=== PATIENT | male | born 1960 | race African-American/Black ===

== ENCOUNTER 2021-04-10 21:43 | Emergency (ER) | payer OTHER ==
[~2021-04-10] VITALS: Ht 180.3 cm; Wt 86.4 kg
[2021-04-10] MEDS ORDERED: PHENYLEPHRINE HCL 0.5% 15 ML NASAL SPRAY NASAL ONE (22:00)
[2021-04-10] MEDS ORDERED: OXYMETAZOLINE HCL 0.05% 15 ML NASAL SPRAY NASAL ONE (22:15)
[2021-04-10 22:32] VITALS: BP 161/60
== END 2021-04-10 22:40 | disposition home or self-care (01) ==
LOC: EMS 21:47
DX: R04.0 Epistaxis (principal); I10 Essential (primary) hypertension
CPT/HCPCS: 99283